=== PATIENT | male | born 1990 | race African-American/Black ===

== ENCOUNTER 2019-07-09 18:11 | Emergency (ER) | payer OTHER ==
[~2019-07-09] VITALS: Ht 188 cm; Wt 69.4 kg
[2019-07-09] MEDS ORDERED: ACETAMINOPHEN-1 EAC1 PO (19:17)
[2019-07-09] MEDS ORDERED: NAPROSYN500 MG PO (19:18)
[2019-07-09 19:40] VITALS: BP 130/67
== END 2019-07-09 19:40 | disposition home or self-care (01) ==
LOC: M.ERS 18:11
DX: M76.61 Achilles tendinitis, right leg (principal); Z86.73 Personal history of transient ischemic attack (TIA), and cerebral infarction without residual deficits